=== PATIENT | female | born 1935 | race Caucasian/White ===

== ENCOUNTER → 2016-04-06 | Outpatient (CLI) | payer OTHER ==
[~2016-04-06] MED LIST: ALDACTONE25 MG PO; ASPIR 8181 MG PO; CENTRUM SILVER1 EAC4 PO; COREG3.125 MG PO; COREG6.25 MG PO; COUMADIN7.5 MG PO; COZAAR 50 MG TA50 M2 PO; DEMADEX20 MG PO; ENOXAPARIN60 MG/0.1 SUBQ; GLUCOPHAGE XR750 MG PO; KLOR-CON 1010 MEQ PO; LASIX 20 MG TAB20 MG PO; LIPITOR 10 MG10 M1 PO; MAGOX 400400 MG PO; OXYBUTYNIN 5 MG5 M2 PO; PROBIOTIC1 EAC1 PO; SYMBICORT160 MCG/4. INH; ZANTAC 150MG T150 MG PO; ZYRTEC10 M4 PO
--- NOTE | ~2016-04-06 | 2DMMODE ---
[facility] [address] [place] [address] 2 D/M-MODE ECHOCARDIOGRAM Name: ЕКАТЕРИНА HERNANDEZ Room #: REG CL [facility]#: [id number] Admission: 04/06/16 Attend Phys: Osorio Murray, Discharge: Date of : 35 Date of Service: 04/06/16 1306 Report #: [id number] THIS REPORT FOR: //name// Transthoracic Echocardiography Ordering physician: Osorio Murray M.D., F.A.C.C. Referring physician: Osorio Murray M.D., F.A.CWilliam Duarte Fire Adjuster: CHANTELLE Lux Indications/History: DM, Cardiomyopathy, HTN. BP: 162 / HR: 70bpm Height: 62in Weight: 169.6lb 82 Study data: M-mode, complete 2D, complete spectral Doppler, and color Doppler. Location: Echo laboratory. Routine. Image quality was good. 2D measurements Normal Normal LVID ED 45.7mm 36-57 IVS ED 9.5mm 6-11 LVID ES 36.9mm 23-40 LVPW ED 9mm 6-11 LA volume 21ml/m2 16-28 AoRoot diam 21.6mm 21-37 index ED LVOT diameter 19mm 18-23 Findings: Left ventricle: The cavity size was normal. Wall thickness was normal. Systolic function was mildly reduced. The estimated ejection fraction was in the range of 45% to 50%. Diffuse hypokinesis. Right ventricle: The cavity size was normal. Systolic function was normal. Right atrium: The atrium was normal in size. Left atrium: The atrium was normal in size. Volume index: 21ml/m2 (S). Aortic valve: Trileaflet; mildly calcified leaflets. Doppler: There was no stenosis. Mild to moderate [facility] [address] [place] [address] 2 D/M-MODE ECHOCARDIOGRAM Name: ЕКАТЕРИНА HERNANDEZ Room #: REG CL [facility]#: [id number] Admission: 04/06/16 Attend Phys: Osorio Murray, Discharge: Date of : 35 Date of Service: 04/06/16 1306 Report #: [id number] regurgitation. Peak velocity: 147.3cm/s (S). Mitral valve: Mildly calcified annulus. Doppler: There was no evidence for stenosis. No regurgitation. Peak E-wave velocity: 83.7cm/s. Peak gradient: 2.8mm Hg (D). Peak A-wave velocity: 114.9cm/s. Tricuspid valve: Structurally normal valve. Doppler: There was no evidence for stenosis. No regurgitation. Pulmonic valve: Structurally normal valve. Doppler: There was no evidence for stenosis. No regurgitation. Pericardium: There was no pericardial effusion. Aorta: Aortic root: The aortic root was normal in size. Pulmonary artery: Pressure could not be reliably determined due to minimal or absent tricuspid insufficiency jet, but pulmonary hypertension was not suggested. Diastolic function: Doppler parameters are consistent with abnormal left ventricular relaxation (grade 1 diastolic dysfunction). Systemic veins: Inferior vena cava: The vessel was normal in size; the respirophasic diameter changes were in the normal range (= 50%). Conclusions 1. Left ventricle: Systolic function was mildly reduced. The estimated ejection fraction was in the range of 45% to 50%. Diffuse hypokinesis. Doppler parameters are consistent with abnormal left ventricular relaxation (grade 1 diastolic dysfunction). 2. Aortic valve: Trileaflet; mildly calcified leaflets. There was no stenosis. Mild to moderate regurgitation. 3. Mitral valve: Mildly calcified annulus. No regurgitation. 4. Pericardium, extracardiac: There was no pericardial effusion. <ELECTRONICALLY SIGNED> By: Osorio Murray MD, [facility] 04/06/16 1438 1306 1438 Osorio Murray MD, [facility] /aaron
== END ==
LOC: CV 07:27
DX: I10 Essential (primary) hypertension (principal); E11.9 Type 2 diabetes mellitus without complications; I42.9 Cardiomyopathy, unspecified

== ENCOUNTER → 2016-10-11 | Outpatient (CLI) | payer OTHER | LOC: ULTRA 08:39 | DX: I65.23 Occlusion and stenosis of bilateral carotid arteries (principal) ==

== ENCOUNTER → 2017-07-20 | Outpatient (CLI) | payer OTHER | LOC: ULTRA 06:34 | DX: I65.23 Occlusion and stenosis of bilateral carotid arteries (principal); Z88.8 Allergy status to other drugs, medicaments and biological substances; Z88.1 Allergy status to other antibiotic agents; Z88.2 Allergy status to sulfonamides ==

== ENCOUNTER → 2018-05-14 | Outpatient (CLI) | payer OTHER | LOC: ULTRA 09:15 | DX: I65.23 Occlusion and stenosis of bilateral carotid arteries (principal) ==

== ENCOUNTER → 2018-06-18 | Outpatient (CLI) | payer OTHER ==
--- NOTE | 2018-06-28 11:06 | 2DMMODE ---
[facility] [address] [place] [address] 2 D/M-MODE ECHOCARDIOGRAM Name: ЕКАТЕРИНА HERNANDEZ LEIGH Room #: REG [facility]#: [id number] ������������� Admission: 06/18/18 ������������� Attend Phys: Osorio Murray, Discharge: ��� ������������� ��� Date of : 35 Date of Service: 06/18/18 1639 �� Report #: [id number] �������� ��������������������������������������������[id number] THIS REPORT FOR: //name// APPROVED REPORT Study performed: 06/18/2018 15:01:49 EXAM: Comprehensive 2D, Doppler, and color-flow Echocardiogram Patient Location: Echo lab Status: routine BSA: 1.77 HR: 73 bpm BP: 158/75 mmHg Other Information Study Quality: Technically Difficult/Adequate Indications Diabetes Cardiomyopathy Hypertension/HDD 2D Dimensions RVDd: 25.90 mm IVSd: 10.28 (7-11mm) LVOT Diam: 18.78 (18-24mm) LVDd: 42.00 mm PWd: 12.81 (7-11mm) Ascending Ao: 26.99 (22-36mm) LVDs: 33.52 (25-40mm) Aortic Root: 20.56 mm IVC: 13.00 mm Volumes Left Atrial Volume (Systole) Single Plane 4CH: 24.75 mL Single Plane 2CH: 18.21 mL LA ESV Index: 13.00 mL/m2 Aortic Valve AoV Peak Ap.: 1.13 m/s AO Peak Gr.: 5.13 mmHg LVOT Max P.24 mmHg LVOT Max V: 0.88 m/s MICHAEL Vmax: 2.16 cm2 AI Vmax: 3.46 m/s AI [place]osho: 2.46 m/s2 AI PHT: 409.73 ms [facility] [place] [address] 2 D/M-MODE ECHOCARDIOGRAM Name: ЕКАТЕРИНА HERNANDEZ LEIGH Room #: [facility]#: [id number] ������������� Admission: 06/18/18 ������������� Attend Phys: Osorio Murray, Discharge: ��� ������������� ��� Date of : 35 Date of Service: 06/18/18 1639 �� Report #: [id number] �������� ��������������������������������������������[id number] Mitral Valve E/A Ratio: 0.4 MV Decel. Time: 233.26 ms MV E Max Ap.: 0.49 m/s MV A Ap.: 1.12 m/s MV PHT: 67.65 ms IVRT: 154.56 ms Pulmonary Valve PV Peak Ap.: 0.98 m/s PV Peak Gr.: 3.91 mmHg Pulmonary Vein P Vein S: 0.53 m/s P Vein A: 0.21 m/s P Vein D: 0.52 m/s P Vein A Dur.: 120.0 msec P Vein S/D Ratio: 1.02 Tricuspid Valve RAP Estimate: 5.00 mmHg Left Ventricle The left ventricle is normal size. There is normal left ventricular wall thickness. Left ventricular systolic function is mildly decreased. Prominent discordant septal motion LVEF is 45%. Mild diastolic dysfunction is present (impaired relaxation pattern). Right Ventricle The right ventricle is normal size. Right ventricle is mildly hypokinetic. Atria The left atrium size is normal. The right atrium size is normal. Aortic Valve Aortic valve is mildly calcified. Mild aortic regurgitation. There is no aortic valvular stenosis. Mitral Valve Mild mitral annular calcification. Trace mitral regurgitation. No evidence of mitral valve stenosis. Tricuspid Valve The tricuspid valve is normal in structure. There is no tricuspid valve regurgitation noted. Unable to assess PA pressure. [facility] [address] [place] [address] 2 D/M-MODE ECHOCARDIOGRAM Name: ЕКАТЕРИНА HERNANDEZ LEIGH Room #: REG [facility].#: [id number] ������������� Admission: 06/18/18 ������������� Attend Phys: Osorio Murray, Discharge: ��� ������������� ��� Date of : 35 Date of Service: 06/18/18 1639 �� Report #: [id number] �������� ��������������������������������������������[id number] Pulmonic Valve Pulmonic valve is not well visualized. Trace pulmonic regurgitation. Great Vessels The aortic root is normal in size. IVC is normal in size and collapses >50% with inspiration. Pericardium There is no pericardial effusion. <Conclusion> Left ventricular systolic function is mildly decreased. Prominent discordant septal motion LVEF is 45%. Mild diastolic dysfunction Aortic valve is mildly calcified. Mild aortic regurgitation, no stenosis. Mild mitral annular calcification. Trace mitral regurgitation. Pulmonary artery pressure could not be reliably ascertained There is no pericardial effusion. ��������������������������������������������� <ELECTRONICALLY SIGNED> ���������������������������������������� By: Osorio Murray MD, FACC ��������������������������������������������� 06/18/18 [phone] 38 Osorio Murray MD, FAC /INF
== END ==
LOC: CV 13:50
DX: I08.0 Rheumatic disorders of both mitral and aortic valves (principal); I10 Essential (primary) hypertension; I42.9 Cardiomyopathy, unspecified; E11.9 Type 2 diabetes mellitus without complications

== ENCOUNTER 2018-07-06 12:48 | Inpatient (IN) | payer OTHER ==
[2018-07-06] VITALS (11 sets, daily range): BP systolic 136–163; BP diastolic 59–99
[~2018-07-06] VITALS: Ht 157.5 cm; Wt 74.8 kg
[2018-07-06 14:00] LABS: HEMATOCRIT 44.8 % (37.0-47.0); HEMOGLOBIN 15.2 gm/dL (12.0-15.0); MCH 31.4 pg (26.0-34.0); MCV 92.4 fL (80.0-100.0); RBC 4.85 mil/uL (4.20-5.00); RDW 14.5 % (10.5-14.5); WBC 7.7 thou/uL (4.0-11.0)
[2018-07-06 14:14] LABS: ALBUMIN 3.8 g/dL (3.4-5.0); APTT 27.1 Seconds (24.5-32.8); CALCIUM 9.3 mg/dL (8.5-10.1); CREATININE 1.3 mg/dL (0.6-1.0); POTASSIUM 4.1 mmol/L (3.5-5.1); PROTIME 10.1 Seconds (9.3-11.4); TOTAL BILIRUBIN 0.5 mg/dL (<0.1-1.0)
[2018-07-06] MEDS ORDERED: CLARITIN10 M3 PO (17:08)
[2018-07-06] MEDS ORDERED: OZEMPIC0.25 MG/0. SUBQ (17:11)
[2018-07-06] MEDS ORDERED: VITAMIN B-12500 MCG PO (18:40)
[2018-07-06] MEDS ORDERED: METFORMIN HCL500 MG PO (18:42)
--- NOTE | 2018-07-06 19:51 | NUR ---
PT ARRIVED DIRECT ADMIT AT APPROX 1500. PT A&OX4, STEADY GAIT, NO DIZZYNESS. VITAL SIGNS WNL. IV PLACED AND DR. SHAW PAGED. PT WAS THEN TAKEN DIRECTLY TO EP FOR PACEMAKER PLACEMENT. PT BACK TO UNIT AT 1830 AND UNABLE TO VOID ON BEDPAN. VOIDED A SMALL AMOUNT ON BEDSIDE COMMODE. PT WAS A-PACED ON RETURN TO UNIT. REPORT GIVEN TO [facility] MANAGER NURSE TOÑA
--- NOTE | 2018-07-07 00:57 | NUR ---
ASSUMED PT CARE AT 1900. PT A/OX4, VITAL SIGNS STABLE, ASSESSMENT CHARTED. BEDREST WITH HOB AT 45 DEGREES. NO COMPLAINTS OF SOB, DIZZINESS. PT ABLE TO USE BEDSIDE COMMODE X1 ASSIST.VPACED ON THE MONITOR. SITE CLEAN, DRY, INTACT. NO HEMATOMAS. FALL PRECAUTIONS IN PLACE. PT CALLS APPROPRIATELY. RESTING WELL. WILL CONTINUE TO MONITOR.
[2018-07-07 01:08] VITALS: BP 128/66
[2018-07-07 01:52] LABS: URINE BILIRUBIN NEGATIVE (Negative); URINE BLOOD NEGATIVE (Negative); URINE CLARITY CLEAR; URINE COLOR YELLOW; URINE GLUCOSE-RANDOM* NEGATIVE (Negative); URINE KETONES NEGATIVE (Negative); URINE LEUKOCYTES-REFLEX TRACE (Negative); URINE NITRITE-REFLEX POSITIVE (Negative); URINE PROTEIN (DIPSTICK) NEGATIVE (Negative); URINE UROBILINOGEN 0.2 E.U./dl (0.2-1.0)
[2018-07-07 02:04] LABS: CASTS None Seen /LPF (None Seen); MUCUS None Seen strn/LPF (None Seen); SQUAMOUS 0-3 Few /LPF (0-3)
[2018-07-07 02:05] LABS: BACTERIA-REFLEX 1-9 Few /HPF (None Seen); CRYSTALS None Seen /LPF (None Seen); URINE RBC 0-2 Rare /HPF (0-2); URINE WBC-REFLEX 6-15 Few /HPF (0-5)
[2018-07-07 04:14] VITALS: BP 129/48
[2018-07-07 08:05] VITALS: BP 124/62
[2018-07-07 09:59] VITALS: BP 124/62
--- NOTE | 2018-07-07 12:13 | NUR ---
ASSUMED CARE OF PATIENT AT 0700. ASSESSMENTS CHARTED. PATIENT'S FAMILY AT THE BEDSIDE. PA/LAT CXR VERIFYING PLACEMENT. CARDIOLOGY/HOSP. APPROVED D/C. RESTRICTIONS/SIGNS OF INFECTION EDUCATED TO PATIENT. PATIENT STATES THAT SHE UNDERSTANDS. DISCHARGE PAPERWORK SIGNED. IV AND TELE REMOVED. PATIENT STATES THAT SHE FEELS BETTER THAN SHE DID WHEN SHE ARRIVED.
--- NOTE | 2018-07-08 08:42 | D ---
[facility] [place] [address] [address] DISCHARGE SUMMARY Name: ЕКАТЕРИНА HERNANDEZ Room #: 201-P [facility] IN M.R.#: [id number] Admission: 07/06/18 ������������������ Attend Phys: Kin Michael Discharge: 07/07/18 ������������������ Date of : 35 Report #: [id number] THIS REPORT FOR: //name// CC: Kin Leonángela Gaston DATE OF SERVICE: 07/07/2018 FINAL DIAGNOSES: 1. Syncope. 2. High-grade arteriovenous block, status post permanent pacemaker. 3. Nonischemic cardiomyopathy. 4. Non-Hodgkin's lymphoma. 5. Diabetes mellitus. 6. Hypertension. HOSPITAL COURSE: Please see the original H and P for full details. The patient has a history of nonischemic cardiomyopathy, recently with syncope. The monitor revealed complete heart block intermittently. She underwent placement of a dual chamber pacemaker by Dr. Lonny Shahid. She remained stable overnight. Chest x-ray findings are unremarkable. She is stable for discharge and scheduled for followup with EP. FINAL DISPOSITION: Continue with Lipitor 10 mg, Zantac, Aldactone 25 mg, Claritin as needed and metformin, can resume carvedilol. ��������������������������������������������� <ELECTRONICALLY SIGNED> ���������������������������������������� By: Eduin Narvaez MD ��������������������������������������������� 07/08/18 0842 1014 Eduin Narvaez MD /nt
--- NOTE | 2018-07-16 14:33 | P ---
[facility] [address] [place] [address] PROCEDURE REPORT Name: DAVIDЕКАТЕРИНА ABRAHAM Room #: 201-P [facility] IN M.R.#: [id number] Admission: 07/06/18 ������������������ Attend Phys: Kin Michael Discharge: 07/07/18 ������������������ Date of : 35 Report #: [id number] THIS REPORT FOR: //name// CC: Kin Leonángela Gaston DATE OF SERVICE: 07/06/2018 PREOPERATIVE DIAGNOSES: 1. Syncope. 2. Left bundle-branch block. 3. Complete heart block. 4. Nonischemic cardiomyopathy. 5. [place] [employer] functional class 2-3 heart failure symptoms. PROCEDURE: Biventricular pacemaker implantation. HISTORY: The patient is an 82-year-old female with a history of a nonischemic cardiomyopathy secondary to chemotherapy for non-Hodgkin's lymphoma. She also has a history of a left bundle-branch block with most recent echo showing EF of 40-45%, [place] Heart functional class 2-3 heart failure symptoms. She has recently had multiple syncopal episodes. patient monitor demonstrated a period of complete heart block lasting 8 seconds with associated syncope. She is here for biventricular pacemaker implantation with anticipated 100% right ventricular pacing required and therefore, will undergo biventricular pacemaker implantation. ANESTHESIA: The patient underwent MAC anesthesia with no anesthesia related complications. DESCRIPTION OF PROCEDURE: The patient underwent informed consent. We discussed the details of the procedure including risks, which include but not limited to bleeding, infection, vascular damage, cardiac perforation and pneumothorax. She understood these risks and is willing to proceed. She was brought to the EP laboratory in a fasting and sedated state, prepped and draped in a sterile fashion. She received IV antibiotics prior to the procedure and she underwent a venogram showing patency of the left axillary vein. Next, I injected lidocaine below the level of clavicle. Incision was made, pocket was created over the prepectoral fascia and access was obtained three times to the left axillary vein. Next, sheaths were positioned using the modified Seldinger technique. Next, I placed a lead into the right ventricular apex with ease. Next, I attempted to position the atrial lead. She had a usual atrial anatomy. I had to use multiple different stylets and finally used a small stylet available; however, it was still difficult to deploy the lead in [facility] [address] [place] [address] PROCEDURE REPORT Name: DAVIDЕКАТЕРИНА LEIGH Room #: 201-P [facility] IN .R.#: [id number] Admission: 07/06/18 ������������������ Attend Phys: Kin Michael Discharge: 07/07/18 ������������������ Date of : 35 Report #: [id number] the successful position. The lead was consistently going into the right ventricular outflow tract despite trying to just position it in the atrium. It dislodged multiple times. Therefore, the initial [employer] lead was model #2088, serial #[id number]. I had decided that this screw was no longer deploying adequately and therefore this lead was no longer utilized. Another lead was positioned and I got a decent pacing threshold, but as I was later positioning the LV lead, this lead dislodged as well. Therefore, I proceeded with positioning the LV lead. We did find a nice posterolateral branch. The lead was positioned into this vessel and the thresholds were poor throughout the course of this target vessel. Finally, I got a decent threshold using vector 12, which is basically the lead pacing to the can, which I seldom use. The threshold at this position was satisfactory at 2.5 volts at 1.0 milliseconds, pacing impedance of 1050 ohms and no phrenic nerve capture. Next, I repositioned the atrial lead and at this time, we got decent numbers. All leads were sutured to the prepectoral fascia. The device was connected to the 3 leads and the pocket was closed in 2 layers using 2-0 for the deep layer, 3-0 for the middle layer and surgical glue for the skin layer. The patient awoke neurologically and hemodynamically intact. No complications and no significant bleeding. The implanted device was [employer] model #MA6306, serial #[id number]. Atrial lead was [employer], model #2088TC, 52 cm, serial #[id number]. The RV lead was [employer] model #2088TC, 58 cm, serial #[id number] and the LV lead was [employer] model #1458Q, 86 cm, serial #[id number]. The atrial lead demonstrated a P-wave of 4 millivolts and the atrial threshold was 0.5 at 0.4 with normal impedance. The RV lead demonstrated R-wave of 9.9 millivolts, pacing impedance of 1025 ohms and pacing threshold 0.75 volts at 0.4 milliseconds and the LV lead was as described above. CONCLUSIONS: 1. Successful biventricular pacemaker implantation. 2. Satisfactory atrial, right ventricular and left ventricular pacing and sensing thresholds. ��������������������������������������������� <ELECTRONICALLY SIGNED> ���������������������������������������� By: Lonny Shahid MD ��������������������������������������������� 07/16/18 1433 1740 1417 Lonny Shahid MD /nt
== END 2018-07-07 10:35 | disposition home or self-care (01) | DRG 242 ==
LOC: 2N 12:48
PROVIDERS: Nurse Practitioner; ADMIT Hospitalist
PROC: 02HL3JZ Insertion of Pacemaker Lead into Left Ventricle, Percutaneous Approach (ICD-10-PCS; principal; 2018-07-06)
PROC: 02HK3JZ Insertion of Pacemaker Lead into Right Ventricle, Percutaneous Approach (ICD-10-PCS; principal; 2018-07-06)
PROC: 0JH607Z Insertion of Cardiac Resynchronization Pacemaker Pulse Generator into Chest Subcutaneous Tissue and Fascia, Open Approach (ICD-10-PCS; principal; 2018-07-06)
PROC: B51N1ZZ Fluoroscopy of Left Upper Extremity Veins using Low Osmolar Contrast (ICD-10-PCS; principal; 2018-07-06)
PROC: 02H63JZ Insertion of Pacemaker Lead into Right Atrium, Percutaneous Approach (ICD-10-PCS; principal; 2018-07-06)
DX: I44.2 Atrioventricular block, complete (principal); I50.33 Acute on chronic diastolic (congestive) heart failure; I42.9 Cardiomyopathy, unspecified; I50.20 Unspecified systolic (congestive) heart failure; C85.90 Non-Hodgkin lymphoma, unspecified, unspecified site; G47.33 Obstructive sleep apnea (adult) (pediatric); K21.9 Gastro-esophageal reflux disease without esophagitis; K44.9 Diaphragmatic hernia without obstruction or gangrene; I11.0 Hypertensive heart disease with heart failure; E11.9 Type 2 diabetes mellitus without complications; E78.5 Hyperlipidemia, unspecified; Z88.1 Allergy status to other antibiotic agents; Z88.2 Allergy status to sulfonamides; Z86.73 Personal history of transient ischemic attack (TIA), and cerebral infarction without residual deficits; Z87.891 Personal history of nicotine dependence; Z86.711 Personal history of pulmonary embolism
CPT/HCPCS: 10081; 62110; 62900; 70005

== ENCOUNTER → 2018-12-25 | Outpatient (CLI) | payer OTHER ==
[~2018-12-25] MED LIST changes: +CLARITIN10 M3 PO; +METFORMIN HCL500 MG PO; +OZEMPIC0.25 MG/0. SUBQ; +VITAMIN B-12500 MCG PO
== END ==
LOC: RAD 11:00
DX: Z12.31 Encounter for screening mammogram for malignant neoplasm of breast (principal)

== ENCOUNTER → 2019-04-12 | Outpatient (CLI) | payer OTHER | LOC: SJCVCIMAG 08:34 | DX: Z45.018 Encounter for adjustment and management of other part of cardiac pacemaker (principal); I35.1 Nonrheumatic aortic (valve) insufficiency; R94.31 Abnormal electrocardiogram [ECG] [EKG]; I11.0 Hypertensive heart disease with heart failure; I50.32 Chronic diastolic (congestive) heart failure; E11.9 Type 2 diabetes mellitus without complications; I42.9 Cardiomyopathy, unspecified; C85.90 Non-Hodgkin lymphoma, unspecified, unspecified site; E78.5 Hyperlipidemia, unspecified; G47.33 Obstructive sleep apnea (adult) (pediatric); Z90.710 Acquired absence of both cervix and uterus; Z79.4 Long term (current) use of insulin; Z79.899 Other long term (current) drug therapy; Z87.891 Personal history of nicotine dependence; Z86.711 Personal history of pulmonary embolism ==

== ENCOUNTER → 2019-10-11 | Outpatient (CLI) | payer OTHER | LOC: SJCVC 09:59 | PROVIDERS: ATTEND Internal Medicine | DX: R94.31 Abnormal electrocardiogram [ECG] [EKG] (principal); I42.9 Cardiomyopathy, unspecified; I11.0 Hypertensive heart disease with heart failure; I50.32 Chronic diastolic (congestive) heart failure; I65.23 Occlusion and stenosis of bilateral carotid arteries; E78.5 Hyperlipidemia, unspecified; C85.90 Non-Hodgkin lymphoma, unspecified, unspecified site; E11.9 Type 2 diabetes mellitus without complications; Z86.711 Personal history of pulmonary embolism; Z79.82 Long term (current) use of aspirin; Z79.84 Long term (current) use of oral hypoglycemic drugs; Z79.899 Other long term (current) drug therapy; Z87.891 Personal history of nicotine dependence ==

== ENCOUNTER → 2019-10-29 | Outpatient (CLI) | payer OTHER | LOC: SJCVC 14:28 | PROVIDERS: ATTEND Internal Medicine Cardiovascular Disease | DX: Z45.02 Encounter for adjustment and management of automatic implantable cardiac defibrillator (principal); R94.31 Abnormal electrocardiogram [ECG] [EKG]; R55 Syncope and collapse; I44.2 Atrioventricular block, complete; I42.8 Other cardiomyopathies; I11.0 Hypertensive heart disease with heart failure; I50.20 Unspecified systolic (congestive) heart failure; E11.9 Type 2 diabetes mellitus without complications; E78.5 Hyperlipidemia, unspecified; Z79.82 Long term (current) use of aspirin; Z79.899 Other long term (current) drug therapy; Z79.84 Long term (current) use of oral hypoglycemic drugs; Z95.810 Presence of automatic (implantable) cardiac defibrillator; Z87.891 Personal history of nicotine dependence ==

== ENCOUNTER → 2020-01-28 | Outpatient (CLI) | payer OTHER | LOC: SJCVC 10:22 | PROVIDERS: ATTEND Internal Medicine | DX: R94.31 Abnormal electrocardiogram [ECG] [EKG] (principal); I42.9 Cardiomyopathy, unspecified; I11.0 Hypertensive heart disease with heart failure; I50.32 Chronic diastolic (congestive) heart failure; I65.23 Occlusion and stenosis of bilateral carotid arteries; E78.5 Hyperlipidemia, unspecified; C85.90 Non-Hodgkin lymphoma, unspecified, unspecified site; E11.9 Type 2 diabetes mellitus without complications; G47.33 Obstructive sleep apnea (adult) (pediatric); Z95.0 Presence of cardiac pacemaker; Z79.82 Long term (current) use of aspirin; Z79.899 Other long term (current) drug therapy; Z86.711 Personal history of pulmonary embolism; Z87.891 Personal history of nicotine dependence ==

== ENCOUNTER → 2020-07-27 | Outpatient (CLI) | payer OTHER | LOC: SJCVC 11:03 | PROVIDERS: ATTEND Internal Medicine | DX: R94.31 Abnormal electrocardiogram [ECG] [EKG] (principal); I11.0 Hypertensive heart disease with heart failure; I50.32 Chronic diastolic (congestive) heart failure; I42.9 Cardiomyopathy, unspecified; C85.90 Non-Hodgkin lymphoma, unspecified, unspecified site; I65.23 Occlusion and stenosis of bilateral carotid arteries; E11.9 Type 2 diabetes mellitus without complications; E78.5 Hyperlipidemia, unspecified; G47.33 Obstructive sleep apnea (adult) (pediatric); Z90.710 Acquired absence of both cervix and uterus; Z98.890 Other specified postprocedural states; Z95.0 Presence of cardiac pacemaker; Z88.8 Allergy status to other drugs, medicaments and biological substances; Z79.82 Long term (current) use of aspirin; Z79.84 Long term (current) use of oral hypoglycemic drugs; Z79.899 Other long term (current) drug therapy; Z86.711 Personal history of pulmonary embolism; Z87.891 Personal history of nicotine dependence ==

== ENCOUNTER → 2020-10-28 | Outpatient (CLI) | payer OTHER | LOC: SJCVC 14:26 | PROVIDERS: ATTEND Internal Medicine Cardiovascular Disease | DX: I42.9 Cardiomyopathy, unspecified (principal); I44.2 Atrioventricular block, complete; G47.33 Obstructive sleep apnea (adult) (pediatric); E11.9 Type 2 diabetes mellitus without complications; E78.5 Hyperlipidemia, unspecified; Z98.890 Other specified postprocedural states; Z95.810 Presence of automatic (implantable) cardiac defibrillator; Z88.8 Allergy status to other drugs, medicaments and biological substances; Z79.82 Long term (current) use of aspirin; Z79.84 Long term (current) use of oral hypoglycemic drugs; Z79.899 Other long term (current) drug therapy; Z87.891 Personal history of nicotine dependence ==

== ENCOUNTER → 2021-01-29 | Outpatient (CLI) | payer OTHER | LOC: SJCVCIMAG 09:55 | PROVIDERS: ATTEND Internal Medicine | DX: I35.1 Nonrheumatic aortic (valve) insufficiency (principal); R94.31 Abnormal electrocardiogram [ECG] [EKG]; I11.0 Hypertensive heart disease with heart failure; I50.32 Chronic diastolic (congestive) heart failure; I42.9 Cardiomyopathy, unspecified; E78.5 Hyperlipidemia, unspecified; I65.23 Occlusion and stenosis of bilateral carotid arteries; E11.9 Type 2 diabetes mellitus without complications; C85.90 Non-Hodgkin lymphoma, unspecified, unspecified site; K21.9 Gastro-esophageal reflux disease without esophagitis; G47.33 Obstructive sleep apnea (adult) (pediatric); Z86.711 Personal history of pulmonary embolism; Z88.8 Allergy status to other drugs, medicaments and biological substances; Z79.82 Long term (current) use of aspirin; Z79.84 Long term (current) use of oral hypoglycemic drugs; Z79.899 Other long term (current) drug therapy; Z72.89 Other problems related to lifestyle; Z87.891 Personal history of nicotine dependence; Z88.1 Allergy status to other antibiotic agents; Z88.2 Allergy status to sulfonamides ==